=== PATIENT | male | born 1960 ===

== ENCOUNTER 2024-08-30 20:16 | Emergency (ER) | payer OTHER ==
[~2024-08-30] VITALS: Ht 172.7 cm; Wt 102.1 kg
[2024-08-30] MEDS ORDERED: TRAM50 PO (20:27)
[2024-08-30] MEDS ORDERED: Prinivil10 MG PO (20:27)
[2024-08-30 20:55] LABS: BASOPHILS ABSOLUTE AUTO 0.05 K/mm3 (0.00-0.23); BASOPHILS PERCENT AUTO 1 % (0-2); EOSINOPHILS ABSOLUTE AUTO 0.23 K/mm3 (0.00-0.68); EOSINOPHILS PERCENT AUTO 3 % (0-6); Hematocrit 43.9 % (37.0-53.0); Hemoglobin 15.4 g/dL (13.5-17.5); IMMATURE GRAN ABSOLUTE AUTO 0.02 K/mm3 (0.00-0.10); IMMATURE GRAN PERCENT AUTO 0 % (0-1); LYMPHOCYTES ABSOLUTE AUTO 2.03 K/mm3 (0.84-5.20); LYMPHOCYTES PERCENT AUTO 24 % (21-46); MONOCYTES ABSOLUTE AUTO 0.68 K/mm3 (0.16-1.47); MONOCYTES PERCENT AUTO 8 % (4-13); Mean Corpuscular HGB 30.4 pg (26.0-34.0); Mean Corpuscular HGB Conc 35.1 g/dL (31.5-36.5); Mean Corpuscular Volume 87 fL (80-100); Mean Platelet Volume 8.9 fL (9.1-12.4); NEUTROPHILS ABSOLUTE AUTO 5.42 K/mm3 (1.96-9.15); NEUTROPHILS PERCENT AUTO 64 % (41-73); Platelet Count 351 K/mm3 (150-400); RDW Coefficient Variation 12.8 % (11.7-14.2); RDW Standard Deviation 40.2 fL (35.1-46.3); Red Blood Cell Count 5.06 M/mm3 (4.30-5.90); White Blood Cell Count 8.43 K/mm3 (4.00-11.30)
[2024-08-30 21:18] LABS: Albumin/Globulin Ratio 1.1 (0.8-1.8); Bun/Creatinine Ratio 18.5 (12.0-20.0); Creatinine, Blood 0.76 mg/dL (0.60-1.20); Globulin, Blood 3.8 g/dL (2.2-4.0); Potassium, Blood 3.9 mmol/L (3.5-5.5); Total Protein, Blood 7.8 g/dL (6.4-8.2)
[2024-08-30 23:13] VITALS: BP 156/82
== END 2024-08-30 23:14 | disposition home or self-care (01) ==
LOC: ER 20:16
PROVIDERS: Student in an Organized Health Care Education/Training Program
DX: I10 Essential (primary) hypertension (principal); Z79.899 Other long term (current) drug therapy
CPT/HCPCS: 80053; 84484; 85025; 93005; 93010; 99283-25

== ENCOUNTER 2024-09-09 16:48 | Emergency (ER) | payer OTHER ==
[~2024-09-09] VITALS: Ht 172.7 cm; Wt 97.5 kg
[~2024-09-09 16:48] MED LIST: Prinivil10 MG PO; TRAM50 PO
[2024-09-09 18:13] LABS: BASOPHILS ABSOLUTE AUTO 0.05 K/mm3 (0.00-0.23); BASOPHILS PERCENT AUTO 1 % (0-2); EOSINOPHILS ABSOLUTE AUTO 0.19 K/mm3 (0.00-0.68); EOSINOPHILS PERCENT AUTO 3 % (0-6); Hematocrit 43.2 % (37.0-53.0); IMMATURE GRAN ABSOLUTE AUTO 0.01 K/mm3 (0.00-0.10); IMMATURE GRAN PERCENT AUTO 0 % (0-1); LYMPHOCYTES ABSOLUTE AUTO 1.49 K/mm3 (0.84-5.20); LYMPHOCYTES PERCENT AUTO 24 % (21-46); MONOCYTES ABSOLUTE AUTO 0.48 K/mm3 (0.16-1.47); MONOCYTES PERCENT AUTO 8 % (4-13); Mean Corpuscular HGB 30.4 pg (26.0-34.0); Mean Corpuscular HGB Conc 34.7 g/dL (31.5-36.5); Mean Corpuscular Volume 87 fL (80-100); Mean Platelet Volume 9.1 fL (9.1-12.4); NEUTROPHILS PERCENT AUTO 65 % (41-73); Platelet Count 307 K/mm3 (150-400); RDW Coefficient Variation 12.7 % (11.7-14.2); RDW Standard Deviation 40.6 fL (35.1-46.3); Red Blood Cell Count 4.94 M/mm3 (4.30-5.90); White Blood Cell Count 6.32 K/mm3 (4.00-11.30)
[2024-09-09 18:38] LABS: Albumin, Blood 3.8 g/dL (3.4-5.0); Bilirubin, Total 0.7 mg/dL (0.1-1.0); Calcium, Blood 9.7 mg/dL (8.5-10.1); Creatinine, Blood 0.82 mg/dL (0.60-1.20); Potassium, Blood 4.1 mmol/L (3.5-5.5); Total Protein, Blood 7.8 g/dL (6.4-8.2)
[2024-09-09 22:03] VITALS: BP 153/85
== END 2024-09-09 22:02 | disposition home or self-care (01) ==
LOC: ER 16:48
PROVIDERS: Physician Assistant
DX: I10 Essential (primary) hypertension (principal); H53.9 Unspecified visual disturbance; R55 Syncope and collapse; Z79.899 Other long term (current) drug therapy
CPT/HCPCS: 80053; 85025; 93005; 93010; 99283-25